=== PATIENT | female | born 2000 | race Caucasian/White ===

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

== ENCOUNTER → 2019-02-10 | Outpatient (CLI) | payer MEDICAID | LOC: FIMAGING 12:07 | PROVIDERS: ATTEND Midwife | DX: O26.873 Cervical shortening, third trimester (principal); Z3A.30 30 weeks gestation of pregnancy ==

== ENCOUNTER → 2019-03-30 | Outpatient (CLI) | payer MEDICAID | LOC: FIMAGING 12:53 | PROVIDERS: ATTEND Midwife | DX: O24.410 Gestational diabetes mellitus in pregnancy, diet controlled (principal); O41.03X0 Oligohydramnios, third trimester, not applicable or unspecified; Z3A.37 37 weeks gestation of pregnancy ==